=== PATIENT | male | born 1990 | race Two or more races ===

== ENCOUNTER 2019-03-02 00:40 | Emergency (ER) | payer OTHER ==
[~2019-03-02] VITALS: Ht 172.7 cm; Wt 74.4 kg
[2019-03-02 00:44] VITALS: BP 128/52
[2019-03-02] MEDS ORDERED: KETOROLAC TROMETHAMINE INJ 60 MG/2 ML VIAL IM ONE ×2 (01:59→02:00)
--- NOTE | 2019-03-02 02:20 | NUR ---
AMPatient discharged to home in stable condition. Written and verbal after care instructions given. Patient verbalizes understanding of instruction. Pt ambulatory with a steady gait
== END 2019-03-02 02:22 | disposition home or self-care (01) ==
LOC: ER 00:44
DX: G89.29 Other chronic pain (principal); M54.5 Low back pain
CPT/HCPCS: 96372; 99283; J1885

== ENCOUNTER 2022-04-21 19:25 | Emergency (ER) | payer SELFPAY ==
[~2022-04-21] VITALS: Ht 172.7 cm; Wt 86.2 kg
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
--- NOTE | 2022-04-21 20:55 | NUR ---
SEEN BY MD AT BEDSIDE
[2022-04-21] MEDS ORDERED: DIAZEPAM 5 MG TABLET PO ONE (21:30)
[2022-04-21] MEDS ORDERED: KETOROLAC TROMETHAMINE INJ 60 MG/2 ML VIAL IM ONE (21:30)
[2022-04-21] MEDS ORDERED: DIAZEPAM 5 MG TABLET ONE (21:32)
[2022-04-21] MEDS ORDERED: KETOROLAC TROMETHAMINE INJ 30 MG/ML VIAL ONE (21:32)
--- NOTE | 2022-04-21 21:35 | NUR ---
CAME BACK FROM CT SCAN
[2022-04-21] MEDS ORDERED: NAPR-1009 PO (23:18)
[2022-04-21] MEDS ORDERED: CYCL10TA9 PO (23:18)
--- NOTE | 2022-04-21 23:32 | NUR ---
Patient discharged to home in stable condition. Written and verbal after care instructions given. Patient verbalizes understanding of instruction.
[2022-04-21 23:34] VITALS: BP 150/89
== END 2022-04-21 23:35 | disposition home or self-care (01) ==
LOC: ER 19:35
DX: S13.4XXA Sprain of ligaments of cervical spine, initial encounter (principal); S63.502A Unspecified sprain of left wrist, initial encounter; S76.012A Strain of muscle, fascia and tendon of left hip, initial encounter; S39.012A Strain of muscle, fascia and tendon of lower back, initial encounter; S80.02XA Contusion of left knee, initial encounter; Z79.899 Other long term (current) drug therapy; V49.9XXA Car occupant (driver) (passenger) injured in unspecified traffic accident, initial encounter; Y93.89 Activity, other specified; Y92.89 Other specified places as the place of occurrence of the external cause; Y99.8 Other external cause status
CPT/HCPCS: 99284; 72125; 71045; 96372; 73503; 73564; 73110; J1885; 73502